=== PATIENT | female | born 1960 | race African-American/Black ===

== ENCOUNTER 2016-04-21 11:07 | Emergency (ER) | payer OTHER ==
[~2016-04-21] VITALS: Ht 160 cm; Wt 88.9 kg
--- NOTE | ~2016-04-21 | EKG ---
[address] [place] [address] ELECTROCARDIOGRAM REPORT Name: SKYLA LOZANO [facility] #: [id number] Admission: 04/21/16 Attend Phys: Discharge: Date of : 62 Report #: [id number] THIS REPORT FOR: //name// [facility] ED Test Date: 2016-04-21 Test Time: 11:16:53 Pat Name: SKYLA LOZANO Department: Room: Gender: F Commercial Sales Consultant: Zack MARTINEZ RN : 1960 Requested By: Rosalinda Puga Order Number: [id number] MD: Daniel Garza Measurements Intervals [place] Rate: 76 P: 44 LA: 140 QRS: 7 QRSD: 89 T: 4 QT: 377 QTc: 424 Interpretive Statements Sinus rhythm No significant abnormality No previous ECG available for comparison Electronically Signed On 04-21-2016 14:38:37 STOCK LETTERER by Daniel Garza [email or web address] <ELECTRONICALLY SIGNED> By: Daniel Garza MD, [facility] 04/21/16 1438 1116 1116 Daniel Garza MD, FACC /EPI
[~2016-04-21 11:07] MED LIST: ACETAMINOPHEN325 M1 PO; ACIDOPHILUS1 EAC3 PO; APAP/CODEINE ELI5 M1 OR; APAP500 PO; ATENOLOL-CHLOR1 EACH PO; CEPHALEXIN 500500 M1 PO; COLACE100 MG PO; DOCUSATE SODIU100 MG PO; ENDOCET 5-3251 EACH PO; ERYTHROMYCIN250 MG; GAS RELIEF80 MG; HAIR SKIN NAIL1 EACH PO; HYDROCODON-ACE1 EAC7; HYDROCODONE-APA1 TA1 PO; IBUPROFEN 600600 M1 PO; IBUPROFEN 800800 M1 PO; IRON325 PO; KEFLEX500 M1 PO; KEFLEX500 MG PO; KLOR-CON 1010 MEQ PO; LOW DOSE ASPIRI81 M1 PO; MECLIZINE HCL25 M1 PO; MINOCIN100 MG PO; NAPROSYN500 MG PO; NEOSPORIN ANT70.8 GM; NEURONTIN 300300 M1 PO; NOLVADEX20 MG PO; NORCO 5-325 TA1 EACH PO; OMEPRAZOLE40 MG PO; PENICILLIN VK500 M1 PO; PERCOCET PO; POTASSIUM CHLO20 MEQ PO; POTASSIUM20 PO; SLOW-MAG64 M1 PO; TRAMADOL 50 MG50 MG PO; TRAZODONE HCL50 MG PO; UNICOMPLEX M TA1 TA1 PO; VALIUM5 MG PO; ZANTAC 150MG T150 MG PO; ZOFRAN ODT4 MG PO; ZOFRAN4 MG PO; ZPAK PO
[2016-04-21 12:13] LABS: HEMATOCRIT 36.2 % (37.0-47.0); HEMOGLOBIN 12.2 gm/dL (12.0-15.0); MANUAL DIFF YES; MCH 27.8 pg (26.0-34.0); MCHC 33.8 % (28.0-37.0); MCV 82.2 fL (80.0-100.0); PLATELET COUNT 201 thou/uL (150-400); RDW 15.8 % (10.5-14.5); WBC 4.1 thou/uL (4.0-11.0)
[2016-04-21 12:27] LABS: ALBUMIN 3.8 g/dL (3.4-5.0); ALKALINE PHOSPHATASE 81 U/L (46-116); ANION GAP 11 mmol/L (7-16); BUN 16 mg/dL (7-18); CHLORIDE 102 mmol/L (98-107); CO2 29 mmol/L (21-32); CREATININE 1.1 mg/dL (0.6-1.3); DIRECT BILIRUBIN 0.2 mg/dL (<0.1-0.3); GLUCOSE 99 mg/dL (70-99); SGOT 30 U/L (15-37); SGPT 47 U/L (30-65); SODIUM 142 mmol/L (136-145); TOTAL BILIRUBIN 0.6 mg/dL (<0.1-1.0); TOTAL PROTEIN 7.9 g/dL (6.4-8.2); TROPONIN-I < 0.04 ng/mL (<0.04-0.07)
[2016-04-21 12:29] LABS: POTASSIUM 2.9 mmol/L (3.5-5.1)
[2016-04-21 12:34] LABS: CALCIUM 9.5 mg/dL (8.5-10.1)
[2016-04-21 12:53] LABS: ABSOLUTE NEUTROPHILS 2.6 thou/uL (1.4-8.2); TOTAL CELL COUNT 100
[2016-04-21] MEDS ORDERED: SLOW-MAG64 M1 PO (14:15)
[2016-04-21] MEDS ORDERED: PEPCID40 MG PO (14:15)
[2016-04-21] MEDS ORDERED: POTASSIUM20 PO (14:15)
[2016-06-18] MEDS ORDERED: PREDNISONE 20 M20 MG PO (13:03)
[2016-06-18] MEDS ORDERED: PEPCID20 MG PO (13:03)
== END 2016-04-21 14:51 | disposition home or self-care (01) ==
LOC: ER 11:07
PROVIDERS: Emergency Medicine
DX: R07.89 Other chest pain (principal); K21.9 Gastro-esophageal reflux disease without esophagitis; I10 Essential (primary) hypertension; Z90.49 Acquired absence of other specified parts of digestive tract; Z90.11 Acquired absence of right breast and nipple; Z88.8 Allergy status to other drugs, medicaments and biological substances; Z91.018 Allergy to other foods

== ENCOUNTER → 2016-07-03 | Outpatient (CLI) | payer OTHER ==
[~2016-07-03] MED LIST changes: +PEPCID20 MG PO; +PEPCID40 MG PO; +PREDNISONE 20 M20 MG PO
== END ==
LOC: ULTRA 14:05
DX: Z98.82 Breast implant status (principal)

== ENCOUNTER 2016-07-06 12:14 | Emergency (ER) | payer OTHER ==
[~2016-07-06] VITALS: Ht 160 cm; Wt 96.2 kg
[2016-07-06] MEDS ORDERED: MOBIC15 MG PO (14:37)
== END 2016-07-06 14:52 | disposition home or self-care (01) ==
LOC: ER 12:14
DX: S70.01XA Contusion of right hip, initial encounter (principal); I10 Essential (primary) hypertension; G43.909 Migraine, unspecified, not intractable, without status migrainosus; K21.9 Gastro-esophageal reflux disease without esophagitis; Z90.89 Acquired absence of other organs; Z90.49 Acquired absence of other specified parts of digestive tract; Z88.6 Allergy status to analgesic agent; Z88.8 Allergy status to other drugs, medicaments and biological substances; Z91.018 Allergy to other foods; W10.9XXA Fall (on) (from) unspecified stairs and steps, initial encounter; Y93.89 Activity, other specified; Y92.89 Other specified places as the place of occurrence of the external cause; Y99.9 Unspecified external cause status

== ENCOUNTER → 2016-08-07 | Outpatient (CLI) | payer OTHER ==
[~2016-08-07] MED LIST changes: +MOBIC15 MG PO
== END ==
LOC: RAD 08:40
DX: C50.911 Malignant neoplasm of unspecified site of right female breast (principal); N63 Unspecified lump in breast

== ENCOUNTER → 2017-03-12 | Outpatient (CLI) | payer OTHER | LOC: RAD 10:53 | DX: N63.20 Unspecified lump in the left breast, unspecified quadrant (principal); R92.8 Other abnormal and inconclusive findings on diagnostic imaging of breast ==

== ENCOUNTER 2018-03-18 12:30 | Emergency (ER) | payer OTHER ==
[~2018-03-18] VITALS: Ht 160 cm; Wt 95.3 kg
[2018-03-18] MEDS ORDERED: TEGRETOL200 MG PO (13:23)
[2018-03-18 13:38] VITALS: BP 132/72
== END 2018-03-18 13:52 | disposition home or self-care (01) ==
LOC: ER 12:30
DX: G50.0 Trigeminal neuralgia (principal); I10 Essential (primary) hypertension; G43.909 Migraine, unspecified, not intractable, without status migrainosus; K21.9 Gastro-esophageal reflux disease without esophagitis; G62.9 Polyneuropathy, unspecified; G89.29 Other chronic pain; M54.9 Dorsalgia, unspecified; M25.559 Pain in unspecified hip; Z88.8 Allergy status to other drugs, medicaments and biological substances; Z91.018 Allergy to other foods; Z90.49 Acquired absence of other specified parts of digestive tract; Z90.12 Acquired absence of left breast and nipple; Z91.048 Other nonmedicinal substance allergy status; Z85.3 Personal history of malignant neoplasm of breast

== ENCOUNTER → 2018-03-20 | Outpatient (CLI) | payer OTHER ==
[~2018-03-20] MED LIST changes: +TEGRETOL200 MG PO
== END ==
LOC: RAD 01:24
DX: Z12.31 Encounter for screening mammogram for malignant neoplasm of breast (principal)

== ENCOUNTER 2018-03-30 11:19 | Inpatient (IN) | payer OTHER ==
[~2018-03-30] VITALS: Ht 160 cm; Wt 99.8 kg
--- NOTE | ~2018-03-30 | EKG ---
[address] [address] ELECTROCARDIOGRAM REPORT Name: SKYLA LOZANO Room #: 452- ADM IN M.R.#: [id number] Admission: 03/30/18 Attend Phys: Mookie Matthews MD Discharge: Date of : 62 Report #: [id number] THIS REPORT FOR: //name// [facility] ED Test Date: 2018-03-30 Test Time: 11:46:02 Pat Name: SKYLA LOZANO Department: Room: [facility] Gender: F Paper Stacker: BRIAN : 1960 Requested By: Anjum Robertson Order Number: [id number] MD: Daniel Garza Measurements Intervals [place] Rate: 76 P: -25 [place]: 136 QRS: -26 QRSD: 88 T: -24 QT: 356 QTc: 401 Interpretive Statements Sinus rhythm Borderline T abnormalities, inferior leads Compared to ECG 04/21/2016 11:16:53 T-wave abnormality now present Electronically Signed On 03-31-2018 8:10:48 BOILER PLANT WORKER by Daniel Garza [email or web address] <ELECTRONICALLY SIGNED> By: Daniel Garza MD, [facility] 03/31/18 0810 1146 1146 Daniel Garza MD, [facility] /EPI
--- NOTE | ~2018-03-30 | EKG ---
[address] [address] [facility] [place] [address] ELECTROCARDIOGRAM REPORT Name: SKYLA LOZANO Room #: 452-P ADM IN M.R.#: [id number] Admission: 03/30/18 Attend Phys: Mookie Matthews MD Discharge: Date of : 62 Report #: [id number] THIS REPORT FOR: //name// [facility] ED Test Date: 2018-03-30 Test Time: 13:49:47 Pat Name: SKYLA LOZANO Department: Room: [facility] Gender: F Blood Coordinator: shruthi : 1960 Requested By: Anjum Robertson Order Number: [id number] MD: Daniel Garza Measurements Intervals [employer] Rate: 66 P: 32 OR: 154 QRS: -1 QRSD: 232 T: -1 QT: 375 QTc: 393 Interpretive Statements Sinus rhythm No significant abnormality Compared to ECG 04/21/2016 11:16:53 No significant changes Electronically Signed On 03-31-2018 8:13:43 MORTGAGE LOAN COUNSELOR by Daniel Garza [email or web address] <ELECTRONICALLY SIGNED> By: Daniel Garza MD, [facility] 03/31/18 0813 48 48 Daniel Garza MD, [facility] /EPI
--- NOTE | ~2018-03-30 | HC ---
[facility] [place] [address] CONSULTATION Name: SKYLA LOZANO Room #: 452-P ADM IN M.R.#: [id number] Admission: 03/30/18 Attend Phys: Mookie Matthews MD Discharge: Date of : 62 Report #: [id number] THIS REPORT FOR: //name// CC: Mookie EllisonStapleton DATE OF SERVICE: 04/01/2018 REASON FOR CONSULTATION: Facial/head pain. HISTORY OF PRESENT ILLNESS: The patient is a 58-year-old female who has had a little over a 2-week history of generalized cephalgia and head pressure. She localizes this mostly to the hair-bearing area of the scalp, spreading forward and inferiorly from that area, crossed the lateral sides of the scalp in the temporal area down into the neck. This seems to be more prominent on the right side than the left. She describes the pain as lancing and shooting in nature with an electrical sensation. She has noted some of this coming anteriorly over the scalp towards the forehead as well. She denies any generalized sinus pressure in the maxillary regions or in the ethmoid regions. She has also had some complaints along with this of bilateral lower extremity weakness and weakness in the hips. She says the head pain is not typical for headache or migraine. She has a working previous diagnosis of trigeminal neuralgia. She has always been told in the past that she may have arthritis, she is not sure as to which type. She denies any symptoms of nasal airway congestion, rhinorrhea, postnasal discharge, sinus pressure, pain, sore throat, cough. She has not developed a fever. She has been seen in the Emergency Room for this and had a head CT performed, which did not reveal any pathology. I have reviewed the CT as well. Since consultation was placed, she has also had 3-view sinus x-rays performed, which I have reviewed as well. She does not carry a past history of frequent rhinosinusitis or allergic rhinitis. She denies any bruxism history. She denies any known history of vasculitis and it is not for sure that she has been diagnosed with rheumatoid arthritis in the past, although she has heard those words in the past. PAST MEDICAL HISTORY: Notable for back pain, gastroesophageal reflux disease, hypertension, lightheadedness, paresthesia, the above-mentioned trigeminal neuralgia, GERD, hiatal hernia, gastroparesis. ALLERGIES: INCLUDE MIDODRINE, REGLAN, MUSHROOMS, COMPAZINE, ADHESIVES AND CHOCOLATE. MEDICATIONS: Include K-Dur, Tegretol, Pepcid, Mobic, omeprazole, atenolol, Antivert, iron, Colace, aspirin, Zantac, Valium, Neurontin, and Zofran. PAST SURGICAL HISTORY: Notable for previous cholecystectomy, surgical removal of left breast duct, hemorrhoidectomy, mastectomy with tissue accounting office manager, [address] [address] CONSULTATION Name: SKYLA LOZANO Room #: 452-P [facility] IN M.R.#: [id number] Admission: 03/30/18 Attend Phys: Mookie Matthews MD Discharge: Date of : 62 Report #: [id number] radiation therapy for breast cancer, large colon polyps. FAMILY HISTORY: Unremarkable. REVIEW OF SYSTEMS: Negative for any other pertinent things to HPI. PHYSICAL EXAMINATION: She was examined in the hospital suite. She was alert and oriented. She was sitting upright. There was no evidence of any facial swelling. Scalp appears unremarkable. Facial skin appears normal. Cranial nerves 2-12 appear grossly symmetric. Hyperesthesia is noted across the scalp without the elicitation of any lancinating or sharp shooting pains. No pain on palpation of the temporal arteries. Examination of the nares reveals healthy appearing nasal mucosa without mucosal erythema or edema. There is no purulence of the nose, there is no nasal masses noted. Nasal septum is mainly midline. Oral cavity and oropharynx reveals no abnormalities aside from severe caries in the left lower molar. Neck is normal to palpation. I did review the CT scan of her head, which does show adequate views of the frontal sphenoid, ethmoid and maxillary sinuses without any evidence of air fluid levels, mucosal thickening or mass effect. Plain sinus films done today did not reveal any air fluid levels. ASSESSMENT: Cephalgia with shooting right-sided facial pain. RECOMMENDATIONS: I agree with the original recommendation by the hospitalist for Neurology consult. They have already discussed with Dr. Shannon from General Surgery about a temporal artery biopsy, which seems reasonable as well as rheumatoid consultation. I do not find any clinical or radiographic evidence to corroborate a history of a sinus or nasal source for this pain and would not recommend pursuing any oral antibiotics or any sinus type medications for her symptomatology at this time. Thank you for asking for our opinion. <ELECTRONICALLY SIGNED> By: Kenneth Pak MD 04/03/18 0729 164 09 Kenneth Pak MD /nt
[~2018-03-30 11:19] MED LIST changes: -ERYTHROMYCIN250 MG; +ERYTHROMYCIN250 MG PO
[2018-03-30 11:20] VITALS: BP 116/78
[2018-03-30 11:54] LABS: URINE BILIRUBIN NEGATIVE (Negative); URINE BLOOD TRACE (Negative); URINE CLARITY CLEAR; URINE COLOR YELLOW; URINE GLUCOSE-RANDOM* NEGATIVE (Negative); URINE KETONES NEGATIVE (Negative); URINE LEUKOCYTES-REFLEX NEGATIVE (Negative); URINE NITRITE-REFLEX NEGATIVE (Negative); URINE PROTEIN (DIPSTICK) 2+ (Negative); URINE SPECIFIC GRAVITY >= 1.030 (1.005-1.035); URINE UROBILINOGEN 0.2 E.U./dl (0.2-1.0)
[2018-03-30 11:55] LABS: HEMATOCRIT 37.7 % (37.0-47.0); HEMOGLOBIN 12.3 gm/dL (12.0-15.0); MCH 27.2 pg (26.0-34.0); MCHC 32.6 g/dL (28.0-37.0); MCV 83.5 fL (80.0-100.0); PLATELET COUNT 230 thou/uL (150-400); RBC 4.52 mil/uL (4.20-5.00); RDW 15.6 % (10.5-14.5); WBC 2.1 thou/uL (4.0-11.0)
[2018-03-30 12:02] LABS: ALBUMIN 3.9 g/dL (3.4-5.0); CALCIUM 9.4 mg/dL (8.5-10.1); CREATININE 1.3 mg/dL (0.6-1.0); TOTAL BILIRUBIN 0.4 mg/dL (<0.1-1.0); TOTAL PROTEIN 8.9 g/dL (6.4-8.2)
[2018-03-30 12:06] LABS: POTASSIUM 2.8 mmol/L (3.5-5.1)
[2018-03-30 12:26] LABS: CASTS None Seen /LPF (None Seen); SQUAMOUS >10 Many /LPF (0-3)
[2018-03-30 12:27] LABS: CRYSTALS None Seen /LPF (None Seen); URINE RBC 0-2 Rare /HPF (0-2); URINE WBC-REFLEX 6-15 Few /HPF (0-5)
[2018-03-30 12:28] LABS: BACTERIA-REFLEX 1-9 Few /HPF (None Seen)
[2018-03-30 12:58] LABS: ABSOLUTE NEUTROPHILS 1.2 thou/uL (1.4-8.2)
[2018-03-30 13:37] LABS: ALBUMIN 4.1 g/dL (3.4-5.0); TOTAL PROTEIN 8.4 g/dL (6.4-8.2)
[2018-03-30 14:04] LABS: TSH 2.508 uIU/mL (0.358-3.740)
[2018-03-30 14:45] VITALS: BP 130/81
[2018-03-30 16:32] VITALS: BP 146/88
[2018-03-30 16:40] VITALS: BP 128/90
[2018-03-30 19:32] VITALS: BP 115/76
[2018-03-31 00:10] VITALS: BP 107/63
[2018-03-31 04:14] LABS: HEMATOCRIT 35.1 % (37.0-47.0); HEMOGLOBIN 11.8 gm/dL (12.0-15.0); MCHC 33.6 g/dL (28.0-37.0); MCV 83.4 fL (80.0-100.0); RBC 4.21 mil/uL (4.20-5.00); RDW 15.5 % (10.5-14.5)
[2018-03-31 04:17] LABS: WBC 1.8 thou/uL (4.0-11.0)
[2018-03-31 04:22] LABS: CALCIUM 8.9 mg/dL (8.5-10.1); CREATININE 1.2 mg/dL (0.6-1.0); MAGNESIUM 1.8 mg/dL (1.8-2.4); POTASSIUM 3.3 mmol/L (3.5-5.1)
[2018-03-31 05:45] VITALS: BP 123/85
[2018-03-31 07:35] VITALS: BP 150/82
[2018-03-31] MEDS ORDERED: POTASSIUM20 PO (10:35)
[2018-03-31] MEDS ORDERED: AMOXICILLIN 50500 MG PO (10:38)
[2018-03-31] MEDS ORDERED: LIDOCAINE35.44 GM TOP (10:41)
[2018-03-31 16:23] VITALS: BP 138/79
[2018-03-31 22:00] VITALS: BP 130/66
[2018-04-01 05:35] LABS: HEMOGLOBIN 11.7 gm/dL (12.0-15.0); MCH 27.1 pg (26.0-34.0); MCHC 32.6 g/dL (28.0-37.0); MCV 83.3 fL (80.0-100.0); RBC 4.33 mil/uL (4.20-5.00); RDW 15.8 % (10.5-14.5); WBC 2.1 thou/uL (4.0-11.0)
[2018-04-01 05:59] LABS: CALCIUM 9.2 mg/dL (8.5-10.1); CREATININE 0.9 mg/dL (0.6-1.0); MAGNESIUM 1.9 mg/dL (1.8-2.4); POTASSIUM 3.9 mmol/L (3.5-5.1)
[2018-04-01 08:21] VITALS: BP 118/69
[2018-04-01 14:15] VITALS: BP 127/63
[2018-04-01 19:31] VITALS: BP 132/75
[2018-04-02 04:24] VITALS: BP 144/89
[2018-04-02 05:58] LABS: HEMOGLOBIN 11.8 gm/dL (12.0-15.0); MCH 27.5 pg (26.0-34.0); MCHC 32.7 g/dL (28.0-37.0); RBC 4.28 mil/uL (4.20-5.00); RDW 16.1 % (10.5-14.5); WBC 2.9 thou/uL (4.0-11.0)
[2018-04-02 06:05] LABS: CALCIUM 9.2 mg/dL (8.5-10.1); CREATININE 0.9 mg/dL (0.6-1.0); POTASSIUM 4.4 mmol/L (3.5-5.1)
[2018-04-02 08:05] VITALS: BP 117/72
[2018-04-02 15:37] VITALS: BP 123/78
[2018-04-02 19:09] VITALS: BP 134/76
[2018-04-03 03:21] VITALS: BP 150/80
[2018-04-03 07:12] LABS: HEMATOCRIT 36.2 % (37.0-47.0); HEMOGLOBIN 11.6 gm/dL (12.0-15.0); MCH 27.1 pg (26.0-34.0); MCHC 32.2 g/dL (28.0-37.0); MCV 84.2 fL (80.0-100.0); RBC 4.29 mil/uL (4.20-5.00); RDW 15.7 % (10.5-14.5); WBC 3.7 thou/uL (4.0-11.0)
[2018-04-03 07:23] LABS: CALCIUM 9.1 mg/dL (8.5-10.1); CREATININE 0.9 mg/dL (0.6-1.0); MAGNESIUM 2.1 mg/dL (1.8-2.4); POTASSIUM 4.3 mmol/L (3.5-5.1)
[2018-04-03 17:25] VITALS: BP 149/88
[2018-04-03 19:13] VITALS: BP 153/79
[2018-04-04 04:54] VITALS: BP 135/85
[2018-04-04 06:01] LABS: HEMATOCRIT 34.5 % (37.0-47.0); HEMOGLOBIN 11.5 gm/dL (12.0-15.0); MCH 27.9 pg (26.0-34.0); MCHC 33.2 g/dL (28.0-37.0); MCV 83.8 fL (80.0-100.0); RBC 4.12 mil/uL (4.20-5.00); WBC 4.6 thou/uL (4.0-11.0)
[2018-04-04 06:16] LABS: ALBUMIN 2.9 g/dL (3.4-5.0); CREATININE 0.9 mg/dL (0.6-1.0); PHOSPHORUS 3.5 mg/dL (2.5-4.9); POTASSIUM 3.9 mmol/L (3.5-5.1)
[2018-04-04 08:15] VITALS: BP 139/90
[2018-04-04 08:44] VITALS: BP 123/74
[2018-04-04] MEDS ORDERED: HYDROCODONE-AP1 EAC6 PO (10:46)
[2018-04-04] MEDS ORDERED: NORTRIPTYLINE H10 M1 PO (10:46)
[2018-04-04 10:59] VITALS: BP 123/74
[2018-04-06 12:06] LABS: ANTI-DNA SCREEN 1 IU/mL (0-9); ANTI-RNP <0.2 AI (0.0-0.9)
== END 2018-04-04 11:44 | disposition home or self-care (01) | DRG 683 ==
LOC: ER 11:19 → 4W 13:16 → EROBS 13:16 → 4W 15:47 → ICU 16:37 → 4W 16:42
PROVIDERS: Hospitalist; Internal Medicine; Physician Assistant; Psychiatry & Neurology Neurology
DX: N17.0 Acute kidney failure with tubular necrosis (principal); D61.818 Other pancytopenia; I10 Essential (primary) hypertension; K21.9 Gastro-esophageal reflux disease without esophagitis; G89.29 Other chronic pain; M54.9 Dorsalgia, unspecified; M25.559 Pain in unspecified hip; G62.9 Polyneuropathy, unspecified; E87.6 Hypokalemia; G43.909 Migraine, unspecified, not intractable, without status migrainosus; M06.9 Rheumatoid arthritis, unspecified; E03.9 Hypothyroidism, unspecified; Z90.49 Acquired absence of other specified parts of digestive tract; Z90.11 Acquired absence of right breast and nipple; Z86.010 Personal history of colon polyps; Z88.8 Allergy status to other drugs, medicaments and biological substances; Z91.02 Food additives allergy status; Z87.891 Personal history of nicotine dependence; Z85.3 Personal history of malignant neoplasm of breast; Z92.3 Personal history of irradiation; Z79.82 Long term (current) use of aspirin; Z79.899 Other long term (current) drug therapy
CPT/HCPCS: 10045; 10047

== ENCOUNTER 2018-08-25 16:49 | Emergency (ER) | payer OTHER ==
[~2018-08-25] VITALS: Ht 160 cm; Wt 96.2 kg
[~2018-08-25 16:49] MED LIST changes: +AMOXICILLIN 50500 MG PO; +HYDROCODONE-AP1 EAC6 PO; +LIDOCAINE35.44 GM TOP; +NORTRIPTYLINE H10 M1 PO
[2018-08-25] MEDS ORDERED: NORCO 5-325 TA1 EACH PO ×2 (19:22→19:26)
[2018-08-25 19:50] VITALS: BP 122/82
== END 2018-08-25 19:50 | disposition home or self-care (01) ==
LOC: ER 16:49
DX: M72.2 Plantar fascial fibromatosis (principal); M25.561 Pain in right knee; M25.562 Pain in left knee; I10 Essential (primary) hypertension; G43.909 Migraine, unspecified, not intractable, without status migrainosus; K21.9 Gastro-esophageal reflux disease without esophagitis; G89.29 Other chronic pain; M54.9 Dorsalgia, unspecified; K31.84 Gastroparesis; Z87.891 Personal history of nicotine dependence; Z88.8 Allergy status to other drugs, medicaments and biological substances; Z90.11 Acquired absence of right breast and nipple; Z90.49 Acquired absence of other specified parts of digestive tract; Z91.018 Allergy to other foods

== ENCOUNTER → 2019-03-22 | Outpatient (CLI) | payer OTHER | LOC: RAD 13:38 | DX: C50.411 Malignant neoplasm of upper-outer quadrant of right female breast (principal); Z88.8 Allergy status to other drugs, medicaments and biological substances ==

== ENCOUNTER → 2019-06-02 | Outpatient (CLI) | payer OTHER | LOC: MRI 08:49 | DX: T85.43XA Leakage of breast prosthesis and implant, initial encounter (principal); C50.411 Malignant neoplasm of upper-outer quadrant of right female breast; Z17.0 Estrogen receptor positive status [ER+]; Z90.11 Acquired absence of right breast and nipple; Y92.89 Other specified places as the place of occurrence of the external cause ==

== ENCOUNTER → 2019-10-26 | Outpatient (CLI) | payer OTHER | LOC: BC 10:18 | PROVIDERS: ATTEND Internal Medicine | DX: Z00.00 Encounter for general adult medical examination without abnormal findings (principal); Z12.39 Encounter for other screening for malignant neoplasm of breast; Z78.0 Asymptomatic menopausal state ==

== ENCOUNTER → 2019-12-02 | Outpatient (CLI) | payer OTHER | LOC: NUC 09:03 | PROVIDERS: ATTEND Internal Medicine | DX: K31.89 Other diseases of stomach and duodenum (principal) ==